=== PATIENT | female | born 1980 | race Caucasian/White ===

== ENCOUNTER 2016-09-15 12:11 | Emergency (ER) | payer BC | END 2016-09-15 12:51 | disposition home or self-care (01) | LOC: ER1 12:11 | DX: S39.012A Strain of muscle, fascia and tendon of lower back, initial encounter (principal); F17.210 Nicotine dependence, cigarettes, uncomplicated; Z88.0 Allergy status to penicillin; Z79.899 Other long term (current) drug therapy; X58.XXXA Exposure to other specified factors, initial encounter | CPT/HCPCS: 96372; 99283; J1100; J1885 ==

== ENCOUNTER 2020-10-29 14:52 | Emergency (ER) | payer BC, SELFPAY ==
[~2020-10-29 14:52] MED LIST: ATROVENT HFA12.9 GM INH; BENTYL 20MG TAB20 MG PO; MACROBID 100 M100 MG PO; PREDNISONE20 MG PO; PROVENTIL HFA6.7 GM INH; ROBITUSSIN AC480 ML PO; TESSALON PERLE100 MG PO; ZOFRAN ODT 4 MG4 MG PO
[2020-10-29] MEDS ORDERED: CYCLOBENZAPRINE5 MG PO (16:46)
[2020-10-29] MEDS ORDERED: IBUPROFEN800 MG PO (16:46)
== END 2020-10-29 16:57 | disposition home or self-care (01) ==
LOC: ER1 14:52
DX: M54.5 Low back pain (principal); F17.200 Nicotine dependence, unspecified, uncomplicated
CPT/HCPCS: 81001; 96372; 99283; J1885